=== PATIENT | female | born 1950 | race Caucasian/White ===

== ENCOUNTER 2023-11-03 06:37 | Emergency (ER) | payer MEDICARE, BC ==
[2023-11-03] MEDS ORDERED: Lidocaine 1% 20 ML MDV INFILT ONE (06:38)
== END 2023-11-03 08:23 | disposition home or self-care (01) ==
LOC: FB.ED 06:37
DX: S01.81XA Laceration without foreign body of other part of head, initial encounter (principal); S09.90XA Unspecified injury of head, initial encounter; W01.0XXA Fall on same level from slipping, tripping and stumbling without subsequent striking against object, initial encounter
CPT/HCPCS: 12011; 70450; 99283